=== PATIENT | male | born 1945 ===

== ENCOUNTER 2020-03-14 16:56 | Inpatient (IN) ==
[2020-03-14] MEDS ORDERED: Albuterol 2.5mg/3 ml (0.083%) NEB.SOLN INH PRN (20:27)
[2020-03-14] MEDS ORDERED: Ondansetron 4 mg VIAL 2 MG/ML 2 ml VIAL IV PRN (20:27)
[2020-03-14] MEDS ORDERED: Heparin DRIP 25,000 UNITS BAG 25,000 UNITS/500 ML BAG IV SCH (21:00)
[2020-03-14] MEDS ORDERED: NS 0.9% 1000 ml BAG 1,000 ML IV SCH (21:00)
[2020-03-14 21:21] LABS: ABS Lymphocytes 0.8 10^3/ul (1.0-4.8); ABS Monocytes 0.5 10^3/ul (0-0.8); ABS Neutrophils 3.7 10^3/ul (1.5-7.7); Eosinophil % 0.9 %; Hematocrit 42 % (42-52); Hemoglobin 14.6 g/dL (14.0-18.0); Lymphocyte % 15.9 %; Mean Corpuscular HGB Conc 35 g/dL (31-36); Mean Corpuscular Hemoglobin 33 pg (27-31); Mean Corpuscular Volume 93 fL (80-94); Mean Platelet Volume 7.4 fL (7.4-10.4); Platelet Count 186 10^3/uL (150-450); Red Cell Distribution Width 13 % (10-15)
[2020-03-14] MEDS ORDERED: cefTRIAXone 1 gm/50 mL NS BAG 1 GM/50 ML BAG IVPB ONE (21:30)
[2020-03-14 21:37] LABS: EGFR African American 116.3 (>60); EGFR Non-African American 96.1 (>60); HDL Cholesterol 25.2 mg/dL
[2020-03-14] MEDS ORDERED: Azithromycin 500 mg/250 ml NS 500 MG/250 ML BAG IVPB ONE (22:00)
[2020-03-14 22:23] LABS: TSH Ultra Thyroid Stim Horm 3.54 mcIU/mL (0.34-5.60)
[2020-03-15 00:25] LABS: Folate 10.03 ng/mL (>3.99)
[2020-03-15 05:40] LABS: ABS Eosinophils 0.1 10^3/ul (0-0.6); ABS Lymphocytes 0.8 10^3/ul (1.0-4.8); ABS Monocytes 0.4 10^3/ul (0-0.8); ABS Neutrophils 2.9 10^3/ul (1.5-7.7); Eosinophil % 1.8 %; Hematocrit 40 % (42-52); Hemoglobin 13.9 g/dL (14.0-18.0); Lymphocyte % 18.4 %; Mean Corpuscular HGB Conc 34 g/dL (31-36); Mean Corpuscular Hemoglobin 32 pg (27-31); Mean Corpuscular Volume 93 fL (80-94); Mean Platelet Volume 7.6 fL (7.4-10.4); Platelet Count 176 10^3/uL (150-450); Red Blood Count 4.33 10^6 /uL (4.18-5.48); Red Cell Distribution Width 13 % (10-15); White Blood Count 4.2 10^3/uL (3.5-10.8)
[2020-03-15 05:48] LABS: BUN/Creatinine Ratio 9.9 (8-20); Calcium 9.1 mg/dL (8.6-10.3); EGFR African American 131.6 (>60); EGFR Non-African American 108.8 (>60)
[2020-03-16 05:39] LABS: ABS Eosinophils 0.1 10^3/ul (0-0.6); ABS Lymphocytes 0.8 10^3/ul (1.0-4.8); ABS Monocytes 0.5 10^3/ul (0-0.8); ABS Neutrophils 4.5 10^3/ul (1.5-7.7); Eosinophil % 1.4 %; Hematocrit 40 % (42-52); Hemoglobin 13.9 g/dL (14.0-18.0); Lymphocyte % 13.1 %; Mean Corpuscular HGB Conc 35 g/dL (31-36); Mean Corpuscular Hemoglobin 32 pg (27-31); Mean Corpuscular Volume 92 fL (80-94); Mean Platelet Volume 7.4 fL (7.4-10.4); Nucleated Red Blood Cells % 0.1; Platelet Count 173 10^3/uL (150-450); Red Blood Count 4.29 10^6 /uL (4.18-5.48); Red Cell Distribution Width 13 % (10-15); White Blood Count 5.9 10^3/uL (3.5-10.8)
[2020-03-16 05:58] LABS: EGFR African American 102.7 (>60); EGFR Non-African American 84.9 (>60)
[2020-03-16 13:02] LABS: Troponin I 0.01 ng/mL (<0.03)
[2020-03-16 13:35] LABS: Albumin 3.5 g/dL (3.2-5.2); Potassium 4.2 mmol/L (3.5-5.0); Total Bilirubin 0.6 mg/dL (0.2-1.0)
[2020-03-16 13:41] LABS: Albumin/Globulin Ratio 1.2 (1-3); Globulin 2.9 g/dL (2-4); Total Protein 6.4 g/dL (6.4-8.9)
[2020-03-16 14:02] LABS: BUN/Creatinine Ratio 9.1 (8-20)
[2020-03-17 06:44] LABS: ABS Eosinophils 0.1 10^3/ul (0-0.6); ABS Lymphocytes 0.8 10^3/ul (1.0-4.8); ABS Monocytes 0.6 10^3/ul (0-0.8); Eosinophil % 1.2 %; Hematocrit 41 % (42-52); Hemoglobin 14.6 g/dL (14.0-18.0); Lymphocyte % 12.7 %; Mean Corpuscular HGB Conc 36 g/dL (31-36); Mean Corpuscular Hemoglobin 33 pg (27-31); Mean Corpuscular Volume 92 fL (80-94); Mean Platelet Volume 7.8 fL (7.4-10.4); Platelet Count 197 10^3/uL (150-450); Red Blood Count 4.46 10^6 /uL (4.18-5.48); Red Cell Distribution Width 13 % (10-15); White Blood Count 6.6 10^3/uL (3.5-10.8)
[2020-03-17 07:08] LABS: BUN/Creatinine Ratio 11.2 (8-20); Calcium 9.4 mg/dL (8.6-10.3); EGFR African American 101.4 (>60); EGFR Non-African American 83.8 (>60); Potassium 4.4 mmol/L (3.5-5.0)
[2020-03-17 07:42] VITALS: BP 109/43
== END 2020-03-17 11:53 | disposition swing bed (61) | DRG 64 ==
LOC: MEDTELE 18:52
PROVIDERS: ADMIT Internal Medicine; ATTEND Internal Medicine